=== PATIENT | female | born 1955 | race Caucasian/White ===

== ENCOUNTER → 2021-01-07 08:06 | Outpatient (CLI) | payer MEDICARE, OTHER, SELFPAY ==
--- NOTE | ~2021-01-07 | XR_ITS ---
EXAMINATION: XR hip BI wo pelvis INDICATION: Bilateral hip pain TECHNIQUE: Two views of each hip are obtained. COMPARISON: 04/05/2018 FINDINGS: There is advanced osteoarthritis of the right hip with interval worsening since the compari son examination. Mild left hip osteoarthritis is stable. There is no fracture. Phleboliths are noted in the pelvis. IMPRESSION: 1. Advanced right hip osteoarthritis with interval worsening. Reviewed, dictated and finalized at location A.
--- NOTE | ~2021-01-07 | XR_ITS ---
EXAMINATION: XR chest 2V DATE: 01/07/2021 08:38 INDICATION: Chronic obstructive pulmonary disease TECHNIQUE: Frontal and lateral views of the chest are obtained COMPARISON: 02/04/2012 FINDINGS: The lungs are hyperinflated but free of acute opacities. There is no pleural effusion or pn eumothorax. The cardiomediastinal silhouette is normal. There is mild thoracic spondylosis. IMPRESSION: 1. Mild acute cardiopulmonary abnormality. Reviewed, dictated and finalized at location A.
--- NOTE | ~2021-01-07 | XR_ITS ---
EXAMINATION: XR lumbar spine 2-3V DATE: 01/07/2021 08:38 INDICATION: Dorsalgia TECHNIQUE: Anteroposterior and lateral views of the lumbar spine, and cone-down lateral view of the l umbosacral junction were obtained. COMPARISON: 04/05/2008 FINDINGS: There are 3 mm of stable anterolisthesis of L4 on L5. There is no fracture. The vertebral b loraine heights are maintained. There is stable mild loss of intervertebral disc space height at L4-5 and L5-S1. There is moderate to severe facet osteoarthritis of the lower lumbar spine. Bowel gas pattern is normal. The visualized lung bases are clear. IMPRESSION: 1. Moderate lumbar spondylosis without acute findings or significant interval change. Reviewed, dictated and finalized at location A. IMPRESSION: 1. Moderate lumbar spondylosis without acute findings or significant interval rigo ibarra
== END ==
DX: J44.9 Chronic obstructive pulmonary disease, unspecified (principal); M16.11 Unilateral primary osteoarthritis, right hip; M47.896 Other spondylosis, lumbar region
CPT/HCPCS: 71046; 72100; 73521

== ENCOUNTER → 2021-02-22 11:06 | Outpatient (CLI) | payer MEDICARE, OTHER, SELFPAY ==
--- NOTE | ~2021-02-22 | DEXA_ITS ---
Bone Density Report Name: Sravani Ramos Age: 65 Sex: Female Ethnicity: White Date of : 1955 Indication: osteopenia; parental hip fracture; height loss; postmenopausal Referring Provider: ROWAN KILPATRICK Study: Bone densitometry was performed. Exam Date: February 22, 2021 Accession number: [id number] Bone Density: Region BMD T-score Z-score Classification AP Spine (L1-L4) 0.874 -1.6 0.4 Osteopenia Femoral Neck (Left) 0.540 -2.8 -1.1 Osteoporosis Total Hip (Left) 0.707 -1.9 -0.6 Osteopenia Femoral Neck (Right) 1.204 3.2 4.8 Normal Total Hip (Right) 0.890 -0.4 0.9 Normal Total Hip Mean 0.799 -1.2 0.2 Osteopenia World Health Organization criteria for BMD impression classify patients as: Normal (T-score at or above -1.0), Osteopenia (T-score between -1.0 and -2.5), or Osteoporosis (T-score at or below -2.5). 10-year Fracture Risk: FRAX not reported because: Some T-score for Spine Total or Hip Total or Femoral Neck at or below -2.5 Previous Exams: Region Exam Age BMD T-score BMD Change BMD Change Date g/cm2 vs Baseline vs Previous AP Spine(L1-L4) 02/22/2021 65 0.874 -1.6 -0.062* 0.042* 11/28/2016 61 0.833 -1.9 -0.104* -0.074* 01/06/2013 57 0.907 -1.3 -0.029* -0.025* 07/30/2009 53 0.932 -1.0 -0.005 -0.005 04/09/2007 51 0.936 -1.0 Total Hip(Left) 02/22/2021 65 0.707 -1.9 -0.055* -0.024 11/28/2016 61 0.731 -1.7 -0.031* 0.008 01/06/2013 57 0.724 -1.8 -0.039* -0.039* 07/30/2009 53 0.763 -1.5 0.001 0.001 04/09/2007 51 0.763 -1.5 Total Hip(Right) 02/22/2021 65 0.890 -0.4 0.157* 0.147* 11/28/2016 61 0.742 -1.6 0.010 0.019 01/06/2013 57 0.723 -1.8 -0.009 -0.018 07/30/2009 53 0.742 -1.6 0.009 0.009 04/09/2007 51 0.733 -1.7 *Denotes significance at 95% confidence level, LSC for AP Spine = 0.022 g/cm2, LSC for Total Hip = 0.027 g/cm2 Clinical Information Provided by Patient: Parent has had a hip fracture Has used the following medications: Vitamin D, Calcium Patient maximum height was 67 Menopause Age: 48 No regular weight bearing exercise Drinks caffeinated beverages Onset of menses at age 11 Number of children 2 Missed period for more than 6 months in a row Im
== END ==
PROVIDERS: PCP Obstetrics & Gynecology; Visit Provider Obstetrics & Gynecology
DX: Z78.0 Asymptomatic menopausal state (principal); M85.88 Other specified disorders of bone density and structure, other site; M81.0 Age-related osteoporosis without current pathological fracture; M85.852 Other specified disorders of bone density and structure, left thigh; M85.851 Other specified disorders of bone density and structure, right thigh
CPT/HCPCS: 77080

== ENCOUNTER 2023-09-03 08:47 | Outpatient (CLI) | payer MEDICARE, OTHER, SELFPAY ==
--- NOTE | ~2023-09-03 | DEXA_ITS ---
Bone Density Report Name: DUDLEY BARGER Age: 68 Sex: Female Ethnicity: White Date of : 1955 Indication: postmenopausal; screening for osteoporosis; parental hip fracture; Referring Provider: ROWAN KILPATRICK Study: Bone densitometry was performed. Exam Date: September 03, 2023 Accession number: [id number] Bone Density: Region BMD T-score Z-score Classification AP Spine(L1-L4) 0.889 -1.4 0.7 Osteopenia Femoral Neck (Left) 0.568 -2.5 -0.7 Osteoporosis Total Hip (Left) 0.710 -1.9 -0.4 Osteopenia World Health Organization criteria for BMD impression classify patients as: Normal (T-score at or above -1.0), Osteopenia (T-score between -1.0 and -2.5), or Osteoporosis (T-score at or below -2.5). 10-year Fracture Risk: FRAX not reported because: Some T-score for Spine Total or Hip Total or Femoral Neck at or below -2.5 Treated for osteoporosis Clinical Information Provided by Patient: Parent has had a hip fracture Is being treated for osteoporosis Has used the following medications: Fosamax (i.e. alendronate), Vitamin D, Calcium Patient maximum height was 67 Menopause Age: 48 Onset of menses at age 11 Number of children 2 Impression: The patient has osteoporosis, based on the Left Femoral Neck T-score. The patient has risk factors, including: parental hip fracture. Discussion: It is important to ask patients whether they are taking their medications and to encourage continued and appropriate compliance with their osteoporosis therapies to reduce fracture risk. It is also important to review their risk factors and encourage appropriate calcium and vitamin D intakes, exercise, fall prevention and other lifestyle measures. Follow-Up: Consider a repeat BMD and Vertebral Fracture Assessment (VFA) exam in 2 years or sooner if medically necessary, to reassess this patient's status. Reported by: FERNANDA on 09/03/2023 9:23:00 AM. Reviewed, dictated and finalized at location ACresencio CHAMBERLAIN
== END 2023-09-03 08:48 | disposition home or self-care (01) ==
LOC: ANHIMG 08:50
PROVIDERS: PCP Internal Medicine; Visit Provider Obstetrics & Gynecology
DX: M81.0 Age-related osteoporosis without current pathological fracture (principal); M85.88 Other specified disorders of bone density and structure, other site; M85.852 Other specified disorders of bone density and structure, left thigh
CPT/HCPCS: 77080